=== PATIENT | male | born 1995 | race Asian ===

== ENCOUNTER 2018-07-30 07:37 | Emergency (ER) | payer OTHER ==
--- NOTE | 2018-07-30 08:28 | ED ---
Lower Extremity - HPI Summary HPI Summary: Patient here with left ankle pain and injury that happened yesterday. He reports he was walking down the stairs, missed stepped and twisted his ankle. He had acute burning pain on both sides of the ankle however was able to bear weight and walk to [facility]. He reports he has pain with weightbearing and movement and he also had swelling. He iced yesterday which he reports provided no relief. He has not taken any medication for pain. He reports he is at a 0 out of 10 with his leg elevated and rest and this escalates to a 4-5 out of 10 with weightbearing/walking. He denies numbness tingling or weakness. When seen at [facility], they told him he did not need an x-ray. He came in today with an Alex wrap and is ambulating without crutches. - History of Current Complaint Chief Complaint: EDExtremityLower Stated Complaint: LT ANKLE INJURY Time Seen by Provider: 07/30/18 07:43 Hx Obtained From: Patient Pain Intensity: 4 - Allergies/Home Medications Allergies/Adverse Reactions: Allergies Allergy/AdvReac Type Severity Reaction Status Date / Time No Known Allergies Allergy Verified 07/30/18 07:53 PMH/Surg Hx/FS Hx/Imm Hx Previously Healthy: Yes Endocrine/Hematology History: Denies: Hx Anticoagulant Therapy, Hx Blood Disorders - Immunization History Immunizations Up to Date: Yes Infectious Disease History: No Infectious Disease History: Denies: Traveled Outside the [place] in Last 30 Days - Family History Known Family History: Positive: Diabetes - Social History Occupation: Student - [place] Lives: Alone Alcohol Use: None Hx Substance Use: No Substance Use Type: Reports: None Hx Tobacco Use: No Smoking Status (MU): Never Smoked Tobacco Review of Systems Constitutional: Negative Positive: no symptoms reported Positive: Arthralgia, Myalgia, Edema Positive: Bruising Neurological: Negative Psychological: Normal All Other Systems Reviewed And Are Negative: Yes Physical Exam Triage Information Reviewed: Yes Vital Signs On Initial Exam: Initial Vitals Temp Pulse Resp BP Pulse Ox 98.5 F 79 18 133/81 98 07/30/18 07:49 07/30/18 07:49 07/30/18 07:49 07/30/18 07:49 07/30/18 07:49 Vital Signs Reviewed: Yes Appearance: Positive: Well-Appearing, No Pain Distress - lying on stretcher, Well-Nourished Skin: Positive: Warm, Skin Color Reflects Adequate Perfusion, Dry - ecchymosis w / mild edema over B/L Lt ankle malleoli - no erythema, no skin breakdown Head/Face: Positive: Normal Head/Face Inspection Eyes: Positive: EOMI ENT: Positive: Hearing grossly normal Respiratory/Lung Sounds: Positive: Breath Sounds Present Cardiovascular: Positive: Pulses are Symmetrical in both Upper and Lower Extremities Musculoskeletal: Positive: Strength/ROM Intact, Pain @ - B/L malleoli and soft tissue edema are TTP on Lt ankle - MT's and toes are NTTP; no gross deformity; pain w/ dorsiflexion/plantar flexion Neurological: Positive: Normal, Sensory/Motor Intact, Alert, Oriented to Person Place, Time, CN Intact II-III Psychiatric: Positive: Anxious Diagnostics - Vital Signs Vital Signs Temp Pulse Resp BP Pulse Ox 07/30/18 07:49 98.5 F 79 18 133/81 98 - Laboratory Lab Statement: Any lab studies that have been ordered have been reviewed, and results considered in the medical decision making process. Lower Extremity Course/Dx - Course Course Of Treatment: XR: soft tissue swelling, no fx, no dislocation - Diagnoses Provider Diagnoses: Left ankle sprain Discharge - Sign-Out/Discharge Documenting (check all that apply): Patient Departure - Discharge Plan Condition: Stable Disposition: HOME Patient Education Materials: Ankle Sprain (ED), Crutch Instructions (ED) [facility] [Medical Doctor] - Additional Instructions: Rest, ice, elevate and avoid weight bearing until tolerated - gently stretch ankle multiple times a daily to prevent stiffness/weakness. If you need additional strengthening as you have expressed an interest in running, you may go through Physical Therapy prior to running to aid in strength/stability of your ankle joint - followup with [facility] for referral - call Wednesday for appointment this week or next. You may take ibuprofen or acetaminophen as needed for pain. Wear ALEX wrap in the morning and during the day only - remove before bed at night. *If you develop numbness, tingling, weakness, swelling or skin discoloration, remove ALEX wrap and elevate leg for 20 minutes. If symptoms persist, return to ED - Billing Disposition and Condition Condition: STABLE Disposition: Home
--- NOTE | 2018-07-30 09:23 | RAD ---
INDICATION: Left ankle injury. TECHNIQUE: 3 views of the left ankle were obtained. FINDINGS: There is prominent soft tissue swelling along the medial aspect of the ankle. The bones are normal alignment. No fracture is seen. Joint spaces appear maintained. IMPRESSION: SOFT TISSUE SWELLING, NO FRACTURE IS SEEN.
[2018-07-30 10:21] VITALS: BP 134/78
== END 2018-07-30 10:19 | disposition home or self-care (01) ==
LOC: ED 07:37
DX: S93.402A Sprain of unspecified ligament of left ankle, initial encounter (principal); X50.1XXA Overexertion from prolonged static or awkward postures, initial encounter; Y92.9 Unspecified place or not applicable
CPT/HCPCS: 99282

== ENCOUNTER 2019-01-14 12:10 | Emergency (ER) | payer OTHER ==
[2019-01-14 13:36] VITALS: BP 127/79
--- NOTE | 2019-01-15 17:10 | ED ---
Back Pain - HPI Summary HPI Summary: Patient is a 23-year-old male presenting to the ED with back pain. He is endorsing bilateral low back pain after working out yesterday. He states he's never had this before. He feels the area is "spasming." His pain is currently rated a 2/10. Denies any numbness or tingling in the legs. Denies any bladder or bowel dysfunction. Patient is otherwise healthy, takes no medications. He has not taken any medication [id number] for relief prior to arrival. He denies any other symptoms. He states he has exercise before but has never had this pain before. He states he was on the elliptical for approximately 45 minutes. He did not develop the back pain until the morning after. He has not tried heat for relief. He denies any other symptoms on this date. Denies any IV drug use, drugs or alcohol. - History of Current Complaint Chief Complaint: EDBackInjuryPain Stated Complaint: BACK PAIN PER PT Time Seen by Provider: 01/14/19 12:23 Hx Obtained From: Patient Onset/Duration: Gradual Onset Onset/Duration: Started Hours Ago Timing: Constant Back Pain Location: Is Discrete @ - Bilateral acute low back pain Severity Initially: Moderate Severity Currently: Moderate Pain Intensity: 1 Pain Scale Used: 0-10 Numeric Character: Aching Alleviating Symptom(s): Rest Associated Signs And Symptoms: Positive: Negative - Risk Factors AAA Risk Factors: Negative TAD Risk Factors: Negative Cauda Equina Risk Factors: Negative Epidural Abscess Risk Factors: Negative - Allergies/Home Medications Allergies/Adverse Reactions: Allergies Allergy/AdvReac Type Severity Reaction Status Date / Time No Known Allergies Allergy Verified 01/14/19 12:13 PMH/Surg Hx/FS Hx/Imm Hx Previously Healthy: Yes Endocrine/Hematology History: Denies: Hx Anticoagulant Therapy, Hx Blood Disorders - Immunization History Hx Pertussis Vaccination: No Immunizations Up to Date: Yes Infectious Disease History: No Infectious Disease History: Denies: Traveled Outside the [place] in Last 30 Days - Family History Known Family History: Positive: Diabetes - Social History Occupation: Unemployed, Student Lives: Dormitory/Roommates Alcohol Use: None Hx Substance Use: No Substance Use Type: Reports: None Hx Tobacco Use: No Smoking Status (MU): Never Smoked Tobacco Review of Systems Constitutional: Negative Negative: Fever, Chills, Fatigue, Skin Diaphoresis Negative: Palpitations, Chest Pain Negative: Shortness Of Breath, Cough Negative: Vomiting, Diarrhea, Nausea Genitourinary: Negative Positive: no symptoms reported, see HPI Negative: Rash, Bruising Neurological: Negative All Other Systems Reviewed And Are Negative: Yes Physical Exam Triage Information Reviewed: Yes Vital Signs On Initial Exam: Initial Vitals Temp Pulse Resp BP Pulse Ox 98.3 F 85 14 141/88 96 01/14/19 12:13 01/14/19 12:13 01/14/19 12:13 01/14/19 12:13 01/14/19 12:13 Vital Signs Reviewed: Yes Appearance: Positive: Well-Appearing, Well-Nourished Skin: Positive: Warm, Skin Color Reflects Adequate Perfusion Head/Face: Positive: Normal Head/Face Inspection Eyes: Positive: Normal, Conjunctiva Clear Neck: Positive: Supple, No Lymphadenopathy Respiratory/Lung Sounds: Positive: Clear to Auscultation Musculoskeletal: Positive: Pain @ - Acute low back pain Neurological: Positive: Sensory/Motor Intact, Alert, Oriented to Person Place, Time Psychiatric: Positive: Normal, Affect/Mood Appropriate AVPU Assessment: Alert Diagnostics - Vital Signs Vital Signs Temp Pulse Resp BP Pulse Ox 01/14/19 13:32 98.9 F 84 19 127/79 100 01/14/19 12:13 98.3 F 85 14 141/88 96 - Laboratory Lab Statement: Any lab studies that have been ordered have been reviewed, and results considered in the medical decision making process. Back Pain Course/Dx - Course Course Of Treatment: Patient's evaluated for acute low back pain which is bilateral. Denies any urinary symptoms. It's he was running on the elliptical yesterday which he does not normally do. He is endorsing 2/10 back pain to the bilateral lower back without radiation to the legs. Denies any numbness or tingling to the legs. On physical examination, there is tenderness to the bilateral low back on only deep palpation. No pain to the posterior cervical, thoracic or lumbar spine. No CVA tenderness bilaterally. He is diagnosed with muscle spasms. - Diagnoses Provider Diagnoses: Low back strain Discharge - Sign-Out/Discharge Documenting (check all that apply): Patient Departure Patient Received Moderate/Deep Sedation with Procedure: No - Discharge Plan Condition: Stable Disposition: HOME Patient Education Materials: Musculoskeletal Pain (ED) Referrals: No Primary Care Phys,NOPCP [Primary Care Provider] - Additional Instructions: Ibuprofen 600mg three times daily Moist heat to the area as much as possible for the next few days - Billing Disposition and Condition Condition: STABLE Disposition: Home
== END 2019-01-14 13:32 | disposition home or self-care (01) ==
LOC: ED 12:10
DX: S39.012A Strain of muscle, fascia and tendon of lower back, initial encounter (principal); X58.XXXA Exposure to other specified factors, initial encounter; Y92.9 Unspecified place or not applicable
CPT/HCPCS: 99281

== ENCOUNTER 2019-01-17 16:59 | Emergency (ER) | payer OTHER ==
[2019-01-17 17:05] VITALS: BP 132/74
[2019-01-17] MEDS ORDERED: diPHENhydraMINE PO* 25 MG PO ONE (17:23)
[2019-01-17] MEDS ORDERED: Famotidine TAB* 20 MG PO ONE (17:24)
--- NOTE | 2019-01-17 17:30 | ED ---
Skin Complaint - HPI Summary HPI Summary: Fine red rash to anterior neck 2 hours with associated pruritus and burning. Denies fever, cough, sore throat, SOB, BETH, ear pain, neck stiffness, CP's test, N/V/D, abdominal pain, change in urine, change in BM. Medical history is none. - History of Current Complaint Chief Complaint: EDRashSkinAbscess Time Seen by Provider: 01/17/19 17:17 Stated Complaint: RASH PER PT Hx Obtained From: Patient Onset/Duration: Started Hours Ago Skin Exposure Onset/Duration: Hours Ago Timing: Constant Onset Severity: Mild Current Severity: Mild Pain Intensity: 2 Pain Scale Used: 0-10 Numeric Skin Location: Discrete, Neck Character: Pruritus, Redness Alleviating Symptom(s): Unknown Associated Signs & Symptoms: Rash - Allergy/Home Medications Allergies/Adverse Reactions: Allergies Allergy/AdvReac Type Severity Reaction Status Date / Time Cephalosporins Allergy Swelling Verified 01/17/19 17:07 PMH/Surg Hx/FS Hx/Imm Hx Endocrine/Hematology History: Denies: Hx Anticoagulant Therapy, Hx Blood Disorders Cardiovascular History: Denies: Hx Pacemaker/ICD GI History: Denies: Hx Irritable Bowel History: Denies: Hx Dialysis Sensory History: Denies: Hx Eye Prosthesis Opthamlomology History: Denies: Hx Legally Blind EENT History: Denies: Hx Deafness Neurological History: Denies: Hx Dementia Infectious Disease History: No Infectious Disease History: Denies: Traveled Outside the US in Last 30 Days - Family History Known Family History: Positive: Diabetes - Social History Occupation: Student Alcohol Use: None Hx Substance Use: No Substance Use Type: Reports: None Hx Tobacco Use: No Smoking Status (MU): Never Smoked Tobacco Review of Systems Constitutional: Negative Eyes: Negative ENT: Negative Cardiovascular: Negative Respiratory: Negative Gastrointestinal: Negative Genitourinary: Negative Musculoskeletal: Negative Positive: Rash Neurological: Negative Psychological: Normal All Other Systems Reviewed And Are Negative: Yes Physical Exam - Summary Physical Exam Summary: Find erythematous, blanchable rash to anterior neck 10 cm x 7 cm. Rashes bilateral. No oral, facial swelling or erythema. Oropharyngeal exam unremarkable. Lung sounds clear to auscultation bilaterally. Triage Information Reviewed: Yes Vital Signs On Initial Exam: Initial Vitals Temp Pulse Resp BP Pulse Ox 98.1 F 78 18 132/74 98 01/17/19 17:00 01/17/19 17:00 01/17/19 17:00 01/17/19 17:00 01/17/19 17:00 Vital Signs Reviewed: Yes Appearance: Positive: Well-Appearing Skin: Positive: Warm Head/Face: Positive: Normal Head/Face Inspection Eyes: Positive: Normal ENT: Positive: Normal ENT inspection Neck: Positive: Supple Respiratory/Lung Sounds: Positive: Clear to Auscultation Cardiovascular: Positive: Normal Abdomen Description: Positive: Nontender Musculoskeletal: Positive: Normal Neurological: Positive: Normal Psychiatric: Positive: Normal AVPU Assessment: Alert - [place] Coma Scale Best Eye Response: 4 - Spontaneous Best Motor Response: 6 - Obeys Commands Best Verbal Response: 5 - Oriented Coma Scale Total: 15 Diagnostics - Vital Signs Vital Signs Temp Pulse Resp BP Pulse Ox 01/17/19 17:00 98.1 F 78 18 132/74 98 - Laboratory Lab Statement: Any lab studies that have been ordered have been reviewed, and results considered in the medical decision making process. Course/Dx - Course Course Of Treatment: Fine red rash to anterior neck 2 hours with associated pruritus and burning. Denies fever, cough, sore throat, SOB, BETH, ear pain, neck stiffness, CP's test, N/V/D, abdominal pain, change in urine, change in BM. Medical history is none. Physical exam:Find erythematous, blanchable rash to anterior neck 10 cm x 7 cm. Rashes bilateral. No oral, facial swelling or erythema. Oropharyngeal exam unremarkable. Lung sounds clear to auscultation bilaterally. Vital signs within normal limits. Patient given Benadryl 50 mg and Pepcid 40 mg. Refused prednisone. - Diagnoses Provider Diagnoses: Allergic reaction Discharge - Sign-Out/Discharge Documenting (check all that apply): Patient Departure Patient Received Moderate/Deep Sedation with Procedure: No - Discharge Plan Condition: Stable Disposition: HOME Patient Education Materials: Urticaria (ED) Print Language: MACEDONIAN Referrals: No Primary Care Phys,NOPCP [Primary Care Provider] - Additional Instructions: Rash should fade in an hour or 2 with the medication you received here in the ED. Return to the ED for any new or worsening symptoms. - Billing Disposition and Condition Condition: STABLE Disposition: Home
[2019-01-17] MEDS: predniSONE TAB* 20 MG PO ONE ×2 (17:35→17:38)
== END 2019-01-17 17:40 | disposition home or self-care (01) ==
LOC: ED 16:59
DX: T78.40XA Allergy, unspecified, initial encounter (principal); R21 Rash and other nonspecific skin eruption; X58.XXXA Exposure to other specified factors, initial encounter; L29.9 Pruritus, unspecified
CPT/HCPCS: 99281; A9270-GY; J7512

== ENCOUNTER 2019-01-28 09:41 | Emergency (ER) | payer OTHER ==
[2019-01-28 10:10] VITALS: BP 121/77
--- NOTE | 2019-01-28 10:50 | ED ---
HPI Cardiac - HPI Summary HPI Summary: Patient's 23-year-old male presenting to the ED with some intermittent "scratchy " chest discomfort after running or working out. He states he has had this in the past, worked out yesterday and had it again last evening. He is currently asymptomatic. He denies any shortness of breath or cough. He denies any fevers , sweats, chills. He denies any back pain. He states he has been working out more recently in an attempt to lose weight. - History of Current Complaint Chief Complaint: EDUpperRespComplaint Stated Complaint: THROAT ITCHY AND HURTS WITH DEEP BREATH PER PT Time Seen by Provider: 01/28/19 10:13 Hx Obtained From: Patient Onset/Duration: Started Hours Ago Timing: Constant Initial Severity: Moderate Current Severity: Moderate Pain Intensity: 1 Pain Scale Used: 0-10 Numeric Chest Pain Location: Right Anterior Chest Pain Radiates: No Character: Burning Aggravating Factor(s): Exertion Alleviating Factor(s): Nothing Associated Signs and Symptoms: Positive: Negative - Risk Factors Pulmonary Embolism Risk Factors: Negative Cardiac Risk Factors: Negative Atrial Fibrillation Risk Factors: Negative TAD Risk Factors: Negative - Allergy/Home Medications Allergies/Adverse Reactions: Allergies Allergy/AdvReac Type Severity Reaction Status Date / Time Cephalosporins Allergy Swelling Verified 01/17/19 17:07 PMH/Surg Hx/FS Hx/Imm Hx Previously Healthy: Yes Endocrine/Hematology History: Denies: Hx Anticoagulant Therapy, Hx Blood Disorders Cardiovascular History: Denies: Hx Pacemaker/ICD GI History: Denies: Hx Irritable Bowel History: Denies: Hx Dialysis Sensory History: Denies: Hx Eye Prosthesis, Hx Legally Blind, Hx Deafness Opthamlomology History: Denies: Hx Eye Prosthesis, Hx Legally Blind Neurological History: Denies: Hx Dementia - Immunization History Hx Pertussis Vaccination: No Immunizations Up to Date: Yes Infectious Disease History: No Infectious Disease History: Denies: Traveled Outside the [place] in Last 30 Days - Family History Known Family History: Positive: Diabetes - Social History Occupation: Employed Full-time Lives: With Family Alcohol Use: None Hx Substance Use: No Substance Use Type: Reports: None Hx Tobacco Use: No Smoking Status (MU): Never Smoked Tobacco Review of Systems Constitutional: Negative Negative: Fever, Chills, Fatigue, Skin Diaphoresis Negative: Palpitations, Chest Pain Positive: Shortness Of Breath. Negative: Cough Negative: Abdominal Pain, Vomiting, Diarrhea Genitourinary: Negative Positive: no symptoms reported, see HPI Negative: Arthralgia, Myalgia Skin: Negative All Other Systems Reviewed And Are Negative: Yes Physical Exam Triage Information Reviewed: Yes Vital Signs On Initial Exam: Initial Vitals Temp Pulse Resp BP Pulse Ox 98.3 F 85 16 121/77 97 01/28/19 10:06 01/28/19 10:06 01/28/19 10:06 01/28/19 10:06 01/28/19 10:06 Vital Signs Reviewed: Yes Appearance: Positive: Well-Appearing, Well-Nourished Skin: Positive: Warm, Skin Color Reflects Adequate Perfusion Head/Face: Positive: Normal Head/Face Inspection Eyes: Positive: EOMI, DEVON, Conjunctiva Clear Neck: Positive: Supple, No Lymphadenopathy Respiratory/Lung Sounds: Positive: Clear to Auscultation, Breath Sounds Present Cardiovascular: Positive: RRR, Pulses are Symmetrical in both Upper and Lower Extremities Musculoskeletal: Positive: Normal, Strength/ROM Intact Neurological: Positive: Sensory/Motor Intact, Alert, Oriented to Person Place, Time, Speech Normal Psychiatric: Positive: Normal, Affect/Mood Appropriate AVPU Assessment: Alert Diagnostics - Vital Signs Vital Signs Temp Pulse Resp BP Pulse Ox 01/28/19 10:38 16 01/28/19 10:06 98.3 F 85 16 121/77 97 - Laboratory Lab Statement: Any lab studies that have been ordered have been reviewed, and results considered in the medical decision making process. Disposition - Course Course Of Treatment: On arrival into the ED, patient appears well. Nontoxic. Vital signs are stable. He is endorsing pain to the midsternal chest region after working out and running long distances. He states he is to be in shape and never had this in the past. He denies any shortness of breath or chest pain currently. He denies any back pain. No pain on palpation. Discussed with patient this is likely pain secondary to working out and getting SOB with excessive running and workouts causing a SOB. VS stable and patient is not tachy. Denies pain currently. He will be diagnosed with costochondritis versus atypical chest pain. He is okay for discharge at this time and is encouraged ibuprofen 600mg 3 times daily. Nies - Diagnoses Provider Diagnoses: Costochondritis Discharge - Sign-Out/Discharge Documenting (check all that apply): Patient Departure Patient Received Moderate/Deep Sedation with Procedure: No - Discharge Plan Condition: Stable Disposition: HOME Patient Education Materials: Costochondritis (ED) Referrals: No Primary Care Phys,NOPCP [Primary Care Provider] - Additional Instructions: Take ibuprofen 600mg three times daily as needed for any discomfort - Billing Disposition and Condition Condition: STABLE Disposition: Home
== END 2019-01-28 10:44 | disposition home or self-care (01) ==
LOC: ED 09:41
DX: M94.0 Chondrocostal junction syndrome [Tietze] (principal)
CPT/HCPCS: 99281

== ENCOUNTER 2019-02-12 19:15 | Emergency (ER) | payer OTHER ==
[2019-02-12] MEDS ORDERED: Lidocaine PATCH 5%* 1 PATCH TRANSDERM ONE (19:43)
[2019-02-12] MEDS ORDERED: Methocarbamol TAB* 500 MG PO ONE (19:44)
--- NOTE | 2019-02-12 19:54 | ED ---
Upper Extremity Pain - HPI Summary HPI Summary: 23-year-old female presents with left shoulder pain today. He states that he pulled a muscle. He states he was working out and the pain was worst. He states pain is over his left scapula. Denies any neck or back pain. No weakness. No neuro symptoms. never had this pain before. Denies any injury. Is right-handed. No urinary symptoms. No swelling or bladder or saddle anesthesias. Pain does not move anywhere. Hasn't tried anything for his symptoms. - History of Current Complaint Chief Complaint: EDSoftTissueLowExtr Stated Complaint: "LT SHOULDER INJURY PER PT" Time Seen by Provider: 02/12/19 19:35 - Allergies/Home Medications Allergies/Adverse Reactions: Allergies Allergy/AdvReac Type Severity Reaction Status Date / Time Cephalosporins Allergy Swelling Verified 02/12/19 19:37 PMH/Surg Hx/FS Hx/Imm Hx Endocrine/Hematology History: Denies: Hx Anticoagulant Therapy, Hx Blood Disorders Cardiovascular History: Denies: Hx Pacemaker/ICD GI History: Denies: Hx Irritable Bowel History: Denies: Hx Dialysis Sensory History: Denies: Hx Eye Prosthesis, Hx Legally Blind, Hx Deafness Opthamlomology History: Denies: Hx Eye Prosthesis, Hx Legally Blind Neurological History: Denies: Hx Dementia - Immunization History Date of Tetanus Vaccine: utd Date of Influenza Vaccine: none Infectious Disease History: No Infectious Disease History: Denies: Traveled Outside the [place] in Last 30 Days - Family History Known Family History: Positive: Diabetes - Social History Alcohol Use: None Hx Substance Use: No Substance Use Type: Reports: None Hx Tobacco Use: No Smoking Status (MU): Never Smoked Tobacco Review of Systems Negative: Fever Negative: Chest Pain Negative: Shortness Of Breath Positive: Myalgia - left posterior shoulder pain All Other Systems Reviewed And Are Negative: Yes Physical Exam Triage Information Reviewed: Yes Vital Signs On Initial Exam: Initial Vitals Temp Pulse Resp BP Pulse Ox 98 F 82 18 137/79 95 02/12/19 19:19 02/12/19 19:19 02/12/19 19:19 02/12/19 19:19 02/12/19 19:19 Vital Signs Reviewed: Yes Appearance: Positive: Well-Appearing Skin: Positive: Warm, Dry Head/Face: Positive: Normal Head/Face Inspection Eyes: Positive: Normal, Conjunctiva Clear ENT: Positive: Pharynx normal Respiratory/Lung Sounds: Positive: Clear to Auscultation, Breath Sounds Present Cardiovascular: Positive: Normal, RRR Musculoskeletal: Positive: Strength/ROM Intact - left shoulder, Other - tenderness over left scapula, nontender thoracic spine, good pulses, good computer service technician strength Neurological: Positive: Normal Psychiatric: Positive: Normal Diagnostics - Vital Signs Vital Signs Temp Pulse Resp BP Pulse Ox 02/12/19 19:19 98 F 82 18 137/79 95 - Laboratory Lab Statement: Any lab studies that have been ordered have been reviewed, and results considered in the medical decision making process. - Radiology thoracic Radiology Interpretation Completed By: ED Physician Summary of Radiographic Findings: no fracture Course/Dx - Course Course Of Treatment: 23-year-old female presents with left shoulder pain today. He states that he pulled a muscle. He states he was working out and the pain was worst. He states pain is over his left scapula. Denies any neck or back pain. No weakness. No neuro symptoms. never had this pain before. Denies any injury. Is right-handed. No urinary symptoms. No swelling or bladder or saddle anesthesias. Pain does not move anywhere. Hasn't tried anything for his symptoms. On exam tenderness over left lower scapula. No midline tenderness neck or back. full ROM shoulder. Neurovascular intact. X-ray normal. We'll treat with Flexeril and Lidoderm patch. Patient understands agrees with plan. - Diagnoses Differential Diagnosis/HQI/PQRI: Positive: Fracture (Closed), Strain, Sprain Provider Diagnoses: Left-sided thoracic back pain Discharge - Sign-Out/Discharge Documenting (check all that apply): Patient Departure Patient Received Moderate/Deep Sedation with Procedure: No - Discharge Plan Condition: Good Disposition: HOME Patient Education Materials: Back Pain (ED) Referrals: No Primary Care Phys,NOPCP [Primary Care Provider] - Additional Instructions: Take muscle relaxers three times a day Apply lidocaine patches to area for up to 12 hours in one 24 hour period Use ibuprofen or Tylenol for pain every 6 hours ice/heat area, move as much as possible Follow up with [facility] Return to ED if develop any new or worsening symptoms - Billing Disposition and Condition Condition: GOOD Disposition: Home
[2019-02-12 21:19] VITALS: BP 122/72
[2019-02-13] MEDS ORDERED: Lidocaine Patch REMOVE* 1 NOTE MISC PATCH OFF SCH (08:00)
== END 2019-02-12 21:22 | disposition home or self-care (01) ==
LOC: ED 19:15
DX: M54.9 Dorsalgia, unspecified (principal); M25.512 Pain in left shoulder
CPT/HCPCS: 72070; 99282; A9270-GY